=== PATIENT | male | born 1945 | race Caucasian/White ===

== ENCOUNTER → 2020-04-19 12:39 | Outpatient (CLI) | payer MEDICARE, MEDICAID, SELFPAY ==
[2020-04-19 13:39] LABS: Basophils # 0.1 K/mm3 (0-0.2); Basophils % 0.9 % (0.1-2.0); Eosinophils # 0.1 K/mm3 (0.0-0.4); Eosinophils % 0.5 % (0.1-12.0); Hematocrit 55.4 % (42.0-52.0); Lymphocytes # 2.5 K/mm3 (0.7-4.5); Lymphocytes % 16.1 % (10-50); Mean Corpuscular HGB Conc 32.6 g/dL (31.8-35.4); Mean Corpuscular Volume 89.2 fl (80-94); Mean Platelet Volume 10.7 fl (7.4-10.4); Monocytes # 0.9 K/mm3 (0.1-1.0); Neutrophils # 11.7 K/mm3 (1.8-7.8); Neutrophils % 76.5 % (37.0-80.0); Platelet Count 281 K/mm3 (142-424); Red Blood Count 6.21 M/mm3 (4.60-6.20); Red Cell Distribution Width 14.3 % (11.5-17.5); White Blood Count 15.3 K/mm3 (4.8-10.8)
[2020-04-19 13:58] LABS: Chloride 104 mmol/L (98-107); Potassium 3.7 mmoL/L (3.5-5.1); Sodium 138 mmol/L (136-145)
[2020-04-19 13:59] LABS: MANUAL DIFFERENTIAL MANUAL DIFFERENTIAL (MANUAL DIFF)
[2020-04-19 14:01] LABS: Anion Gap 20.7 mEq/L (5-15); Blood Urea Nitrogen 31 mg/dl (9-20); Carbon Dioxide 17 mmol/L (22.0-30.0); Estimated Glomerular Filt Rate 82 ml/min (>60); GFR (African American) 100 ML/MIN (>60); Glucose 124 mg/dl (74-100)
[2020-04-19 14:18] LABS: Free T4 (Free Thyroxine) 2.01 ng/dl (0.78-2.19)
[2020-04-19 14:33] LABS: Thyroid Stimulating Hormone 2.88 uIU/mL (0.465-4.68)
[2020-04-19 15:15] LABS: Eosinophils % 1 % (0-3); Lymphocytes % 16 % (10-50); Monocytes % 5 % (2-9); Neutrophils % 78 % (42-76); Platelet Estimate Normal; Total Cells Counted 100
[2020-04-19 15:19] LABS: RBC Morphology Normal
== END ==
PROVIDERS: Visit Provider Urology
DX: R00.0 Tachycardia, unspecified (principal); I48.91 Unspecified atrial fibrillation
CPT/HCPCS: 36415; 80048; 84439; 84443; 85007; 85025

== ENCOUNTER → 2020-04-20 09:41 | Outpatient (CLI) | payer MEDICARE, MEDICAID, SELFPAY ==
--- NOTE | 2020-04-20 09:49 | CA_ITS ---
APPROVED REPORT EXAM: Limited 2D and color flow Echocardiogram Clam Bed Laborer: Estela Zamora RVT Ht: 5 ft 10 in Wt: 200lbs BSA: 2.09 BP: 153/82 mmHg Indications: A-FIB,CABG,PACER,HTN,CAD,CHF,CVA VERY LIMITED STUDY PT SCANNED IN W/C 2D Dimensions Aortic Root 1.88 cm M: 3.1 - 3.7 M-Mode Dimensions RVDd 2.37 cm (0.9-2.6) LA Diam 4.35 cm (1.9-4.0) LVDd 3.85 cm (3.5-5.7) Ao Diam 3.24 cm (2.0-3.7) LVDs 2.53 cm (3.5-5.7) IVSd 0.64 cm (0.6-1.1) PWd 0.92 cm (0.6-1.1) EF (Teich) 6.00% FS 2.40% EDV (Teich) 21.70 mL ESV (Teich) 23.00 mL LV Diastology E Decel Time 143.00 (160-240 msec) E/A Ratio 1.2 MED E' 6.80 (< 7 cm/sec) E'/MED E' Ratio 23.81 (>14) LAT E' 7.00 (<10 cm/sec) E/LAT E' Ratio 23.13 (>14) Aortic Valve LVOT Max 90.00 (70-110 cm/s) LVOT VTI 18.39 cm AoV Peak Lincoln. 142.00 (50-130 cm/s) AO Peak GR. 8.10 mmHg AO Mean GR. 4.60 (<5 mmHg) AO VTI 24.53 (18-25 cm) Mitral Valve MV E Max Lincoln. 162.00 (40-130 cm/s) MV A Velocity 136.00 (40-130 cm/s) E/A Ratio 1.19 MV Decel. Time 143.00 (160-240 ms) MV Mean Gr. 4.90 (<2mmHg) MV PHT 42.00 ms Pulmonary Valve PV Peak Velocity 95.00 (50-150 cm/s) Tricuspid Valve TR P. Velocity 295.00 cm/s Left Ventricle Technically very difficult study because of the patient factors and poor acoustic windows. Left atrium is moderately enlarged, left ventricle is normal size, mild concentric left ventricular hypertrophy, septum is sigmoid configuration, visually estimated ejection fraction 55% with no regional wall motion abnormality, endocardial surfaces are poorly visualized. Diastolic parameters are inconclusive. Right Ventricle Right atrium and right ventricle are not well visualized. Pacemaker lead seen in the right atrium. Aortic Valve Aortic valve is thickened and calcified leaflet continue to display mobility, Doppler is not indicated above aortic stenosis or aortic insufficiency. Mitral Valve Mitral valve has dense mitral annular calcification, which extends in both anterior and posterior mitral leaflet, there is mild mitral stenosis present. Mean gradient is 4 mmHg. There is mild mitral regurgitation seen. There is mobile component of the mitral annular calcification seen prolapsing in the left atrium. Tricuspid Valve Tricuspid valve leaflets are minimally thickened, there is moderate tricuspid regurgitation. Tricuspid regurgitation jet velocity is inadequate for calculation of the right ventricular systolic pressure. Pulmonic Valve Pulmonic valve is poorly visualized. Great Vessels Aortic root is normal size. Pericardium No significant pericardial effusion noted. Conclusion 1. Technically difficult study because of the patient factors and poor acoustic windows. 2. Moderately enlarged left atrium, normal left ventricular size, mild concentric left ventricular hypertrophy, visually estimated ejection fraction 55% with no regional wall motion abnormality, endocardial surfaces are very poorly visualized. Diastolic parameters are inconclusive. 3. Thickened and calcified aortic valve without aortic stenosis or aortic insufficiency. 4. Abnormal mitral valve as described above, there is likely mild mitral stenosis, there is mild mitral regurgitation. 5. Moderate tricuspid regurgitation. 6. No significant pericardial effusion noted. Electronically signed by : Tucker Escobedo, 04/20/2020 19:37:32
== END ==
PROVIDERS: PCP Family Medicine; Visit Provider Internal Medicine
DX: I48.91 Unspecified atrial fibrillation (principal); R00.0 Tachycardia, unspecified; R94.31 Abnormal electrocardiogram [ECG] [EKG]
CPT/HCPCS: 93306; 93308